=== PATIENT | male | born 1990 | race African-American/Black ===

== ENCOUNTER 2020-04-08 07:00 | Emergency (ER) | payer OTHER ==
[~2020-04-08] VITALS: Ht 180.3 cm; Wt 92.7 kg
[2020-04-08 07:01] VITALS: BP 137/82
--- NOTE | 2020-04-08 08:03 | REPVR ---
PROCEDURE INFORMATION: Exam: XR Chest, 2 Views Exam date and time: 04/08/2020 7:41 AM Age: 30 years old Clinical indication: Chest pain; Type not specified TECHNIQUE: Imaging protocol: XR of the chest Views: 2 views. COMPARISON: No relevant prior studies available. FINDINGS: Lungs: Unremarkable. No consolidation. Pleural space: Unremarkable. No pleural effusion. No pneumothorax. Heart/Mediastinum: Unremarkable. No cardiomegaly. Bones/joints: Unremarkable. IMPRESSION: No evidence for acute pulmonary disease. Electronically signed by: Segundo Flores On 04/08/2020 08:02:59 AM
[2020-04-08 08:07] LABS: BASO # 0.1 10^3/uL (0.0-0.2); BASO % 1.1 % (0.0-1.0); EOS # 0.5 10^3/uL (0.0-0.5); EOS % 10.5 % (0.0-3.0); HEMATOCRIT 45.1 % (42.0-52.0); HEMOGLOBIN 14.8 g/dl (13.5-17.5); LYMPH % 44.5 % (24.0-44.0); MEAN CORPUSCULAR HEMOGLOBIN 29.8 pg (27.0-33.0); MEAN CORPUSCULAR HGB CONC 32.8 g/dl (32.0-36.5); MEAN CORPUSCULAR VOLUME 90.9 fl (80.0-96.0); MONO # 0.4 10^3/uL (0.0-0.8); MONO % 8.1 % (0.0-5.0); NEUTROPHILS # 1.6 10^3/uL (1.5-8.5); NEUTROPHILS % 35.6 % (36.0-66.0); PLATELET COUNT, AUTOMATED 262 10^3/uL (150-450); RED BLOOD COUNT 4.96 10^6/uL (4.30-6.10); WHITE BLOOD COUNT 4.6 10^3/uL (4.0-10.0)
[2020-04-08 08:22] LABS: INR 1.03; PROTHROMBIN TIME 13.8 SECONDS (12.5-14.3)
[2020-04-08 08:23] LABS: PARTIAL THROMBOPLASTIN TIME 31.2 SECONDS (24.2-38.5)
[2020-04-08 08:31] LABS: D-DIMER QUANT < 270 ng/ml (<500)
[2020-04-08 08:53] LABS: BLOOD UREA NITROGEN 7 MG/DL (7-18); CALCIUM LEVEL 9.5 MG/DL (8.5-10.1); CARBON DIOXIDE LEVEL 27 MEQ/L (21-32); CHLORIDE LEVEL 106 MEQ/L (98-107); CK-MB VALUE MASS 2.1 NG/ML (<3.6); CPK CREATINE PHOSPHOKINASE 347 U/L (39-308); CREATININE FOR GFR 1.27 MG/DL (0.70-1.30); FREE T4 0.97 NG/DL (0.76-1.46); GLOMERULAR FILTRATION RATE > 60.0 (>60); GLUCOSE, FASTING 87 MG/DL (70-100); MB/CK RELATIVE INDEX 0.61 (< OR =4); SODIUM LEVEL 141 MEQ/L (136-145); THYROID STIMULATING HORMONE 0.347 uIU/ML (0.358-3.740); TROPONIN I < 0.02 NG/ML (< 0.10)
[2020-04-08] MEDS ORDERED: KETOROLAC 30 MG/ML 1ML VIAL IV ONE (09:00)
--- NOTE | 2020-04-09 07:36 | ECGEPIP ---
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
== END 2020-04-08 09:40 | disposition home or self-care (01) ==
LOC: M ED 07:00
DX: R07.9 Chest pain, unspecified (principal); R06.02 Shortness of breath
CPT/HCPCS: 36415; 71046; 80048; 82550; 82553; 84439; 84443; 84484; 85025; 85379; 85610; 85730; 93005; 96374; 99284; J1885